=== PATIENT | female | born 1990 | race Caucasian/White ===

== ENCOUNTER → 2020-07-04 | Day surgery (SDC) | payer OTHER ==
[~2020-07-04] MED LIST: Acetaminophen/HYDROcodone 325-5 MG Tab PO PRN; Bupivacaine 0.25% 10 ML SDV ONE; Dexamethasone 4 MG/ML 5 ML MDV ONE; Dexmedetomidine 200 MCG/2 ML SDV ONE; HYDROmorphone 0.5 MG/0.5 ML Syringe IVPUSH PRN; HYDROmorphone 0.5 MG/0.5 ML Syringe ONE; Ketamine 500 mg/10 ML MDV ONE; Ketorolac 15 MG/ML SDV ONE; Lactated Ringers 1,000 ML IV SCH; Lidocaine 1% 4 ML ONE; Lidocaine 1%/Sod Bicarbonate in NS 8.4% 1 ML Syringe IDERM PRN; Midazolam 1 MG/ML 2 ML SDV ONE; Ondansetron 4 MG/2 ML SDV IVPUSH PRN; Ondansetron 4 MG/2 ML SDV ONE; Propofol 200 MG/20 ML SDV ONE; Scopolamine 1.5 MG Transdermal Patch TRDERM PRN; Sodium Chloride 0.9% 10 ML Syringe FLUSH PRN; Sodium Chloride 0.9% 100 ML ONE; ceFAZolin 1 GM Vial ONE; fentaNYL 100 MCG/2 ML SDV ONE
--- NOTE | 2020-07-04 08:44 | PCM.PREANE ---
Preanesthetic Assessment - Procedure Proposed Procedure: left ulnar nerve neurolysis and anterior transposition - Anesthesia/Transfusion/Family Hx Anesthesia History: Prior Anesthesia Without Reaction Type of Anesthesia Reaction: Other (see below) (woke up hot) Family History of Anesthesia Reaction: No Transfusion History: No Prior Transfusion(s) - Review of Systems General: No Symptoms Pulmonary: No Symptoms Cardiovascular: No Symptoms Gastrointestinal: No Symptoms Neurological: No Symptoms Other: Reports: None - Physical Assessment NPO Status Date: 07/03/20 NPO Status Time: 21:00 Vital Signs: 164/89 96 99% 16 97.7 Height: 5 ft 3 in Weight: 102 kg ASA Class: 3 Mental Status: Alert & Oriented x3 Airway Class: Mallampati = 1 Dentition: Reports: Normal Dentition Thyro-Mental Finger Breadths: 3 Mouth Opening Finger Breadths: 3 ROM/Head Extension: Full Lungs: Clear to Auscultation, Normal Respiratory Effort Cardiovascular: Regular Rate, Regular Rhythm - Lab Values: Laboratory Last Values Urine HCG, Qual Negative (NEGATIVE) 07/04/20 08:00 - Allergies Allergies/Adverse Reactions: Allergies Allergy/AdvReac Type Severity Reaction Status Date / Time No Known Allergies Allergy Verified 07/03/20 13:10 - Blood Blood Available: No - Acknowledgements Anesthesia Type Planned: General Anesthesia Pt an Appropriate Candidate for the Planned Anesthesia: Yes Alternatives and Risks of Anesthesia Discussed w Pt/Guardian: Yes Pt/Guardian Understands and Agrees with Anesthesia Plan: Yes PreAnesthesia Questionnaire HEENT History: Reports: Other (See Below) Cardiovascular History: Reports: None Respiratory History: Reports: None Gastrointestinal History: Reports: None Genitourinary History: Reports: None [employer]ER History: Reports: None Musculoskeletal History: Reports: Other (See Below) Other Musculoskeletal History: hand numbness, tendinitis Neurological History: Reports: Neuropathy, Peripheral (left), Other (See Below) Other Neuro History: polyneuropathy Psychiatric History: Reports: None Endocrine/Metabolic History: Reports: Obesity/BMI 30+ Hematologic History: Reports: None Immunologic History: Reports: None Oncologic (Cancer) History: Reports: None Dermatologic History: Reports: Other (See Below) Other Dermatologic History: dog bite - Infectious Disease History Infectious Disease History: Reports: None - Past Surgical History Head Surgeries/Procedures: Reports: None HEENT Surgical History: Reports: None Cardiovascular Surgical History: Reports: None Respiratory Surgical History: Reports: None GI Surgical History: Reports: None Female Surgical History: Reports: None Male Surgical History: Reports: None Endocrine Surgical History: Reports: None Neurological Surgical History: Reports: None Musculoskeletal Surgical History: Reports: Carpal Tunnel Oncologic Surgical History: Reports: None Dermatological Surgical History: Reports: None - SUBSTANCE USE Tobacco Use Status *Q: Never Tobacco User Tobacco Use Within Last Twelve Months: No Second Hand Smoke Exposure: No Days Per Week of Alcohol Use: 1 (rare) Recreational Drug Use History: No - HOME MEDS Home Medications: Home Meds Gabapentin [Neurontin] 300 mg PO TID 01/03/20 [History] - CURRENT (IN HOUSE) MEDS Current Meds: Current Medications Lactated Ringer's (Ringers, Lactated) 1,000 mls @ 125 mls/hr IV ASDIRECTED KATT Stop: 07/04/20 23:00 Lidocaine/Sodium Bicarbonate (Lidocaine 1%/Sod Bicarbonate In Ns 8.4% 1 Ml Syringe) 0.25 ml IDERM ONETIME PRN PRN Reason: Prior to IV Start Stop: 07/04/20 18:00 Sodium Chloride (Sodium Chloride 0.9% 10 Ml Syringe) 10 ml FLUSH ASDIRECTED PRN PRN Reason: Keep Vein Open Stop: 07/04/20 18:00 Discontinued Medications Bupivacaine HCl (Bupivacaine 0.25% 10 Ml Sdv) Confirm Administered Dose 30 ml .ROUTE .STK-MED ONE Stop: 07/04/20 08:03
--- NOTE | 2020-07-04 11:19 | PCM.POSTAN ---
POST ANESTHESIA ASSESSMENT - MENTAL STATUS Mental Status: Other (Drowsy) - VITAL SIGNS Vital Signs: Last Vital Signs Temp 36.5 C 07/04/20 08:05 Pulse 96 07/04/20 08:05 Resp 16 07/04/20 08:05 BP 164/89 H 07/04/20 08:10 Pulse Ox 99 07/04/20 08:05 1113 141/71 101 23 97.1F 96% - RESPIRATORY Respiratory Status: Respiratory Rate WNL, Airway Patent, O2 Saturation Stable, Supplemental Oxygen - CARDIOVASCULAR CV Status: Pulse Rate WNL, Blood Pressure Stable - GASTROINTESTINAL GI Status: No Symptoms - PAIN Pain Score: 0 - POST OP HYDRATION Hydration Status: Adequate & Stable
[2020-07-04] MEDS: fentaNYL 100 MCG/2 ML SDV IVPUSH PRN ×2 (11:48→11:58)
--- NOTE | 2020-07-17 07:20 | OR ---
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 FINGERNAIL SCULPTOR: Meera Coppola. DESCRIPTION OF PROCEDURE: The patient is a very pleasant 30-year-old female who had a left ulnar nerve neuropathy. After discussing the risks, benefits, and alternatives of both conservative as well as surgical treatment, the patient verbalized understanding and wished to proceed with surgery. The patient was brought to the operating room. After general anesthestic, left upper extremity was prepped and draped in standard orthopedic fashion. Surgical pause was performed identifying the appropriate patient and appropriate extremity to be operated upon. Preoperative antibiotics were given. We utilized a curvilinear incision in the posteromedial aspect of the elbow. Sharp dissection was carried out through skin and subcutaneous tissue. Hemostasis was obtained. Dissected down fairly large soft tissue layer. Dissected down the medial epicondyle and mobilized soft tissue flaps, proximally incised the fascia and identified the nerve between just behind the triceps fascia. We released the nerve all the way down between the 2 heads of FCU. Once this was released, we then mobilized the nerve again from proximal to distal down to first and then second motor branches. We then incised about 2 cm segment of intermuscular septum upon the medial epicondyle. We then transposed the nerve. She had a ridge of fascia that tented the nerve slightly. We incised this sharp edge of the fascia to improve the position of the nerve. Once this was placed, we then mobilized soft tissue flap and sutured this down to medial epicondyle with the nerve transposed anteriorly. This was sutured in place with 2-0 Vicryl suture. The subcutaneous tissue was then closed . We then evaluated the nerve to make sure there was no kinks in the nerve and it was freely mobile. Once this was confirmed, we closed the septum with Monocryl and the skin in standard fashion. She was brought to recovery in safisfactory condition. ANESTHESIA: ESTIMATED BLOOD LOSS: MMODAL /[id number]
== END | disposition home or self-care (01) ==
LOC: JD.SDS 08:00
PROVIDERS: ATTEND Orthopaedic Surgery
DX: G56.22 Lesion of ulnar nerve, left upper limb (principal); M77.8 Other enthesopathies, not elsewhere classified; E66.9 Obesity, unspecified; Z68.41 Body mass index [BMI] 40.0-44.9, adult; Z98.890 Other specified postprocedural states
CPT/HCPCS: 64718; 81025; 87641; J0690; J1100; J1170; J1885; J2250; J2405; J2704; J3010; J3490; J7120; 01810

== ENCOUNTER 2022-03-05 06:53 | Day surgery (SDC) | payer OTHER ==
[~2022-03-05 06:53] MED LIST changes: -Acetaminophen/HYDROcodone 325-5 MG Tab PO PRN; -Bupivacaine 0.25% 10 ML SDV ONE; -Dexamethasone 4 MG/ML 5 ML MDV ONE; -Dexmedetomidine 200 MCG/2 ML SDV ONE; -HYDROmorphone 0.5 MG/0.5 ML Syringe IVPUSH PRN; -HYDROmorphone 0.5 MG/0.5 ML Syringe ONE; -Ketamine 500 mg/10 ML MDV ONE; -Ketorolac 15 MG/ML SDV ONE; -Lidocaine 1% 4 ML ONE; -Midazolam 1 MG/ML 2 ML SDV ONE; -Ondansetron 4 MG/2 ML SDV IVPUSH PRN; -Ondansetron 4 MG/2 ML SDV ONE; -Propofol 200 MG/20 ML SDV ONE; -Scopolamine 1.5 MG Transdermal Patch TRDERM PRN; +Sodium Chloride 0.9% 10 ML Syringe FLUSH SCH; -Sodium Chloride 0.9% 100 ML ONE; -ceFAZolin 1 GM Vial ONE; -fentaNYL 100 MCG/2 ML SDV ONE
[2022-03-05] MEDS ORDERED: Ondansetron 4 MG/2 ML SDV IVPUSH PRN (07:12)
[2022-03-05] MEDS ORDERED: HYDROmorphone 0.5 MG/0.5 ML Syringe IVPUSH PRN (07:12)
[2022-03-05] MEDS ORDERED: fentaNYL 100 MCG/2 ML SDV IVPUSH PRN (07:12)
[2022-03-05] MEDS ORDERED: Propofol 200 MG/20 ML SDV ONE (08:03)
[2022-03-05] MEDS ORDERED: Lidocaine 1% 2 ML ONE (08:03)
[2022-03-05] MEDS ORDERED: Lidocaine 1% 5 ML VIAL ONE (08:03)
[2022-03-05] MEDS ORDERED: fentaNYL 100 MCG/2 ML SDV ONE (08:05)
[2022-03-05] MEDS ORDERED: Midazolam 1 MG/ML 2 ML SDV ONE (08:05)
[2022-03-05] MEDS ORDERED: Lactated Ringers 1,000 ML ONE (08:37)
[2022-03-05] MEDS ORDERED: Ondansetron 4 MG/2 ML SDV ONE (08:50)
[2022-03-05] MEDS ORDERED: Dexamethasone 4 MG/ML 5 ML MDV ONE (08:50)
[2022-03-05] MEDS ORDERED: ceFAZolin 2 GM Vial ONE (09:05)
[2022-03-05] MEDS: Bupivacaine 0.25% 10 ML SDV ONE ×2 (09:24→09:27)
[2022-03-05] MEDS ORDERED: Albuterol/Ipratropium 3.0-0.5 MG/3 ML Neb Soln NEB ONE (09:44)
[2022-03-05] MEDS ORDERED: Albuterol/Ipratropium 3.0-0.5 MG/3 ML Neb Soln NEB SCH (09:45)
[2022-03-05] MEDS ORDERED: Albuterol 0.083% 2.5 MG/3 ML Neb Soln ONE (10:22)
== END 2022-03-05 11:18 | disposition home or self-care (01) ==
LOC: JD.SDS 06:53
PROVIDERS: ATTEND Orthopaedic Surgery
DX: M77.8 Other enthesopathies, not elsewhere classified (principal); G56.22 Lesion of ulnar nerve, left upper limb; Q74.0 Other congenital malformations of upper limb(s), including shoulder girdle; L68.0 Hirsutism; E66.9 Obesity, unspecified; G62.9 Polyneuropathy, unspecified; Z79.899 Other long term (current) drug therapy; Z91.048 Other nonmedicinal substance allergy status; Z98.890 Other specified postprocedural states; Z68.41 Body mass index [BMI] 40.0-44.9, adult
CPT/HCPCS: 24105; 24342; 87641; J0690; J1100; J2250; J2405; J2704; J3010; J3490; J7120; 01710; J7620-GY